=== PATIENT | male | born 1975 | race Two or more races ===

== ENCOUNTER → 2019-10-24 | Outpatient (CLI) | payer BC | END | disposition home or self-care (01) | LOC: LABWHC1 08:30 | PROVIDERS: ATTEND Family Medicine | DX: Z11.59 Encounter for screening for other viral diseases (principal) ==

== ENCOUNTER → 2019-11-07 | Outpatient (CLI) | payer BC | LOC: LABWHC1 07:00 | PROVIDERS: ATTEND Family Medicine | DX: Z03.818 Encounter for observation for suspected exposure to other biological agents ruled out (principal); R50.9 Fever, unspecified | CPT/HCPCS: U0003; C9803 ==

== ENCOUNTER → 2019-12-01 | Outpatient (CLI) | payer BC | END | disposition home or self-care (01) | LOC: LABWHC1 10:50 | PROVIDERS: ATTEND Family Medicine | DX: R05 Cough (principal); J34.89 Other specified disorders of nose and nasal sinuses | CPT/HCPCS: U0003; C9803 ==

== ENCOUNTER → 2020-01-29 | Outpatient (CLI) | payer BC | END | disposition home or self-care (01) | LOC: LABWHC1 15:28 | PROVIDERS: ATTEND Family Medicine | DX: Z20.828 Contact with and (suspected) exposure to other viral communicable diseases (principal) | CPT/HCPCS: U0003; C9803 ==

== ENCOUNTER 2020-11-19 08:05 | Day surgery (SDC) | payer BC ==
[2020-11-15 10:34] VITALS: BMI 28.8
[2020-11-19 08:43] VITALS: TEMP 97.4
[2020-11-19] MEDS: LACTATED RINGERS 1,000 ML IV SCH ×2 (08:53→09:01)
[2020-11-19] MEDS ORDERED: LIDOCAINE 1% INJ 10MG/ML (20 ML MDV) ONE (09:03)
[2020-11-19] MEDS ORDERED: PROPOFOL 10 MG/ML 20 ML VIAL IV ONE (09:03)
--- NOTE | 2020-11-19 09:07 | P.GSHP ---
History of Present Illness H&P Date: 11/19/20 Chief Complaint: Rectal bleeding Patient here today for colonoscopy. Patient with complaints of rectal bleeding. Has had some abdominal cramping at times. No family history of colon cancer. Had a colonoscopy 15 years ago and told he had polyps. Past Medical History Past Medical History: No Reported History History of Any Multi-Drug Resistant Organisms: None Reported Additional Past Surgical History / Comment(s): colonoscopy, jaw/oral surgery Past Anesthesia/Blood Transfusion Reactions: No Reported Reaction Smoking Status: Never smoker Medications and Allergies Home Medications Medication Instructions Recorded Confirmed Type No Known Home Medications 11/15/20 11/15/20 History Allergies Allergy/AdvReac Type Severity Reaction Status Date / Time No Known Allergies Allergy Verified 11/19/20 08:44 Surgical - Exam Vital Signs Temp Pulse Resp BP Pulse Ox 97.4 F L 63 16 128/84 97 11/19/20 08:39 11/19/20 08:39 11/19/20 08:39 11/19/20 08:39 11/19/20 08:39 Physical exam: General: Well-developed, well-nourished HEENT: Normocephalic, sclerae nonicteric Abdomen: Nontender, nondistended Extremities: No edema Neuro: Alert and oriented Assessment and Plan (1) Rectal bleeding Narrative/Plan: Will proceed with colonoscopy Current Visit: Yes Status: Acute Code(s): K62.5 - HEMORRHAGE OF ANUS AND RECTUM SNOMED Code(s): 67142405
--- NOTE | 2020-11-19 09:23 | P.PCN ---
Date of Procedure: 11/19/20 Procedure(s) Performed: PREOPERATIVE DIAGNOSIS: Rectal bleeding POSTOPERATIVE DIAGNOSIS: Diverticulosis PROCEDURE: Colonoscopy ANESTHESIA: MAC SURGEON: Alexander Fried M.D. SPECIMENS: None ENDOSCOPIC PROCEDURE: The patient was placed on the endoscopy table in the left decubitus position. The Olympus colonoscope was inserted into the anus and passed under direct visualization to the base of the cecum. The appendiceal orifice was visualized. From that point the scope was slowly withdrawn inspecting all surfaces carefully. There were no neoplastic inflammatory or polypoid lesions throughout the cecum, ascending, transverse, descending, sigmoid and rectum. There was mild left-sided diverticulosis noted. In the region of the hepatic flexure there was a tight turn. As we withdrew the scope there was noted to be mild inflammatory changes there that was felt to be associated with scope trauma. No mucosal tear was seen. No source of bleeding was clearly identified. Digital rectal examination was normal. The patient was taken to the recovery room in stable condition per anesthesia guidelines. RECOMMENDATIONS: Resume diet. Follow-up colonoscopy 10 years.
[2020-11-19 09:38] VITALS: BP 117/73; PULSE 63; RESP 16
== END 2020-11-19 10:10 | disposition home or self-care (01) ==
LOC: ORWHC2ENDO 08:05
PROVIDERS: ATTEND Surgery
DX: K57.30 Diverticulosis of large intestine without perforation or abscess without bleeding (principal); K62.5 Hemorrhage of anus and rectum
CPT/HCPCS: 45378; J2001; J2704